=== PATIENT | female | born 2000 | race Hispanic/Latino ===

== ENCOUNTER 2019-01-06 20:29 | Emergency (ER) | payer SELFPAY ==
[~2019-01-06] VITALS: Ht 149.9 cm; Wt 87.6 kg
[2019-01-06] MEDS ORDERED: KEFLEX500 MG PO (20:57)
== END 2019-01-06 21:06 | disposition home or self-care (01) ==
LOC: FSED 20:29
DX: S91.201A Unspecified open wound of right great toe with damage to nail, initial encounter (principal); W22.8XXA Striking against or struck by other objects, initial encounter; Y93.01 Activity, walking, marching and hiking
CPT/HCPCS: 99283

== ENCOUNTER 2019-10-23 19:18 | Emergency (ER) | payer SELFPAY ==
[~2019-10-23] VITALS: Ht 149.9 cm; Wt 91.6 kg
[~2019-10-23 19:18] MED LIST: KEFLEX500 MG PO
--- OUTSIDE RECORDS SUMMARY | 2019-10-23 19:20 | XMS REPORT ---
Author Author [facility] t Organization [facility] Address [address] [place] [address] Phone Unavailable Care Team Providers Care [place] Representative Name Role Phone NO, PCP PCP Unavailable Payers Payer Name Policy Type Policy Number Effective Date Expiration Date S shaji [facility] [id number] [facility] Problems This patient has no known problems. Allergies, Adverse Reactions, Alerts This patient has no known allergies or adverse reactions. Medications Ordered Medication Name Filled Medication Name Start Date Stop Da te Current Medication? Ordering Clinician Indication Dosage Frequency Signature (SIG) Comments Components Source Cephalexin Monohydrate (Keflex) 500 Mg Capsule Cephale john Monohydrate (Keflex) 500 Mg Capsule 2019-01-06 00:00:00 Yes Evelia Casanova Do 500 Four Times Daily [facility] Procedures This patient has no known procedures. Encounters Start Date/Time End Date/Time Encounter Type Admission Type [facility] Care Department Encounter ID Source 2019-01-06 20:29:00 2019-01-06 21:06:00 Departed Emergency Room [facility] [id number] [facility] Results This patient has no known results.
[2019-10-23] MEDS ORDERED: IBUPROFEN 200 MG TAB PO ONE (20:15)
[2019-10-23] MEDS ORDERED: ONDANSETRON HCL 4 MG ORAL DISINTEGRATING TAB PO ONE (20:15)
[2019-10-23] MEDS ORDERED: ACETAMINOPHEN 325 MG TAB PO ONE (20:15)
[2019-10-23] MEDS ORDERED: IBUPROFEN 600 MG TAB ONE (20:28)
[2019-10-23] MEDS ORDERED: IBUPROFEN200 MG PO (21:07)
[2019-10-23] MEDS ORDERED: ACETAMINOPHEN650 MG RC (21:07)
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
== END 2019-10-24 00:11 | disposition home or self-care (01) ==
LOC: FSED 19:18
DX: M54.2 Cervicalgia (principal); V43.62XA Car passenger injured in collision with other type car in traffic accident, initial encounter; Y92.488 Other paved roadways as the place of occurrence of the external cause; J45.909 Unspecified asthma, uncomplicated
CPT/HCPCS: 72040; 99283; Q0162

== ENCOUNTER 2021-06-10 11:01 | Emergency (ER) | payer SELFPAY ==
[~2021-06-10] VITALS: Ht 149.9 cm; Wt 120.2 kg
[~2021-06-10 11:01] MED LIST changes: +ACETAMINOPHEN650 MG RC; +IBUPROFEN200 MG PO
[2021-06-10] MEDS ORDERED: ALBUTEROL SULF 0.083% NEB SOLN 3 ML NEB NEB STA (11:10)
[2021-06-10] MEDS ORDERED: IPRATROPIUM BROMIDE 0.02% 2.5 ML NEB NEB STA (11:10)
[2021-06-10] MEDS ORDERED: PREDNISONE 20 MG TAB PO ONE (11:15)
[2021-06-10] MEDS ORDERED: IPRAT-ALBUT 0.5-3 ML NEB (11:17)
[2021-06-10] MEDS ORDERED: [UNRECOGNIZED DRUG - SUPPLY] (11:17)
[2021-06-10] MEDS ORDERED: PROVENTIL HFA6.7 GM INH (11:17)
[2021-06-10] MEDS ORDERED: ALBUTEROL/IPRATROPIUM 3 ML NEB ONE (11:29)
== END 2021-06-10 12:45 | disposition home or self-care (01) ==
LOC: FSED 11:04
DX: J45.909 Unspecified asthma, uncomplicated (principal); Z79.899 Other long term (current) drug therapy
CPT/HCPCS: 99282; J7512

== ENCOUNTER 2022-04-03 14:46 | Emergency (ER) | payer BC, OTHER ==
[~2022-04-03] VITALS: Ht 149.9 cm; Wt 120.2 kg
[~2022-04-03 14:46] MED LIST changes: +IPRAT-ALBUT 0.5-3 ML NEB; +PROVENTIL HFA6.7 GM INH; +[UNRECOGNIZED DRUG - SUPPLY]
[2022-04-03 15:56] LABS: INFLUENZAE A&B ANTIGEN (RAPID) POSITIVE FLU A (NEGATIVE); RESPIRATORY SYNC. VIRUS NEGATIVE (NEGATIVE)
[2022-04-03 18:00] VITALS: BP 127/90
== END 2022-04-03 16:26 | disposition home or self-care (01) ==
LOC: ER 15:00
DX: R05.9 Cough, unspecified (principal); J10.1 Influenza due to other identified influenza virus with other respiratory manifestations; J45.909 Unspecified asthma, uncomplicated; F41.9 Anxiety disorder, unspecified; Z20.822 Contact with and (suspected) exposure to COVID-19
CPT/HCPCS: 87400; 87420; 99282; U0002

== ENCOUNTER 2024-09-26 17:49 | Emergency (ER) | payer OTHER ==
[~2024-09-26] VITALS: Ht 149.9 cm; Wt 125.8 kg
[~2024-09-26 17:49] MED LIST changes: +CEFDINIR300 MG PO; +CORTISPORIN-TC10 M1 LEFT EAR; +ONDANSETRON ODT4 MG PO
[2024-09-26 17:52] VITALS: PULSE 99; RESP 16; TEMP 98.1
[2024-09-26] MEDS ORDERED: IOPAMIDOL 370 MG/ML 100 ML INFUS..BTL INJ ONE (18:36)
[2024-09-26] MEDS ORDERED: MACROBID 100 M100 MG PO (20:34)
[2024-09-26 20:57] VITALS: BP 139/90; PULSE 88; RESP 18; TEMP 98.1; O2SAT 98
== END 2024-09-26 20:57 | disposition home or self-care (01) ==
LOC: FSED 17:55
DX: R31.9 Hematuria, unspecified (principal); N39.0 Urinary tract infection, site not specified; R10.30 Lower abdominal pain, unspecified; R11.0 Nausea; E28.2 Polycystic ovarian syndrome; J45.909 Unspecified asthma, uncomplicated; F41.9 Anxiety disorder, unspecified; F17.210 Nicotine dependence, cigarettes, uncomplicated
CPT/HCPCS: 74177; 80048; 81003; 81025; 85025; 99284; Q9967

== ENCOUNTER 2025-02-01 17:42 | Emergency (ER) | payer OTHER ==
[~2025-02-01] VITALS: Ht 149.9 cm; Wt 135.7 kg
[~2025-02-01 17:42] MED LIST changes: +MACROBID 100 M100 MG PO
[2025-02-01] MEDS: PREDNISONE 20 MG TAB PO ONE (18:43)
[2025-02-01] MEDS: ALBUTEROL/IPRATROPIUM 3 ML NEB NEB ONE ×2 (18:46→19:36)
[2025-02-01] MEDS ORDERED: PREDNISONE20 MG PO (19:38)
[2025-02-01] MEDS ORDERED: VENTOLIN HFA18 GM INH (19:39)
[2025-02-01] MEDS ORDERED: ALBUTEROL2.5 MG/3 M NEB (19:41)
[2025-02-01 19:52] VITALS: PULSE 101; RESP 22; TEMP 97.9
[2025-02-01 20:11] VITALS: BP 115/80; PULSE 95; RESP 20; TEMP 97.9; O2SAT 96
== END 2025-02-01 20:05 | disposition home or self-care (01) ==
LOC: FSED 17:48
DX: R06.02 Shortness of breath (principal); J45.901 Unspecified asthma with (acute) exacerbation; R05.9 Cough, unspecified; E28.2 Polycystic ovarian syndrome; E66.01 Morbid (severe) obesity due to excess calories; F41.9 Anxiety disorder, unspecified
CPT/HCPCS: 85379; 99284; J7512